=== PATIENT | male | born 1950 | race Caucasian/White ===

== ENCOUNTER 2017-07-05 12:26 | Emergency (ER) | payer OTHER ==
[2017-07-05 12:39] VITALS: TEMP 98.1
--- NOTE | 2017-07-05 14:11 | EDPHY ---
H & P Stated Complaint: left leg redness/swelling starting 06/13, seen at [facility], on Keflex, worse Time Seen by Provider: 07/05/17 14:02 - Personal History Current Tetanus/Diphtheria Vaccine: Yes Current Tetanus Diphtheria and Acellular Pertussis (TDAP): Yes Tetanus Vaccine Date: < 10 years - Medical/Surgical History Hx Asthma: No Hx Chronic Respiratory Disease: No Hx Diabetes: No Hx Cardiac Disease: No Hx Renal Disease: No Hx Cirrhosis: No Hx Alcoholism: No Hx HIV/AIDS: No Hx Splenectomy or Spleen Trauma: No Other PMH: divirticulitis - Social History Smoking Status: Former smoker Constitutional: Initial Vital Signs Temperature (C) 36.7 C 07/05/17 12:36 Heart Rate 87 07/05/17 12:36 Respiratory Rate 20 07/05/17 12:36 Blood Pressure 170/99 H 07/05/17 12:36 O2 Sat (%) 92 07/05/17 12:36 O2 Delivery Mode Room Air Allergies/Adverse Reactions: No Known Allergies Allergy (Unverified 07/05/17 12:35) Home Medications: Medication Instructions Recorded [facility] 07/05/17 Medical Decision Making - Diagnostics Imaging: Discussed imaging studies w/ call out operator Radiologist ED Course/Re-evaluation: CHIEF COMPLAINT: Leg swelling and bruising HISTORY OF PRESENT ILLNESS: The patient is a 66 y/o male complaining of persistent swelling and bruising of his left knee and lower leg after being bit or stung by some type of bug 2 weeks ago. He noticed swelling and pain the day after the bite/sting and initially had associated pain around his knee. He went to [facility] ER several days ago for these symptoms and had a normal leg US and was prescribed Keflex for possible infection. He has one dose remaining. The pain has dissipated, but he thinks his left leg still appears swollen and bruised compared to right. No chest pain, dyspnea, fever, redness, skin breakdown, or other associated symptoms. Normally healthy. REVIEW OF SYSTEMS: A 10 point review of systems was performed and is negative with the exception of the elements mentioned in the history of present illness. PHYSICAL EXAM: HR, BP, O2 Sat, RR. Temp noted General Appearance: Alert, well hydrated, appropriate, and non-toxic appearing. Head: Atraumatic without scalp tenderness or obvious injury Eyes: Pupils equal, round, reactive to light and accommodation, EOMI, no trauma , no injection. Nose: Atraumatic, no rhinorrhea, clear. Throat: Mucus membranes moist. Neck: Supple. Respiratory: No distress Cardiovascular: Good capillary refill all extremities. Musculoskeletal: Slight increased swelling of left lower leg compared to right, more superficial spider veins on left than right. No signs of cellulitis, redness, warmth, induration, streaking. Normal active ROM of all extremities, atraumatic. Neurological: Alert, appropriate, and interactive. The patient has non-focal cranial nerves, motor, sensory, and cerebellar exam. Skin: No rashes, good turgor, no nodules on palpation. PAST MEDICAL HISTORY: Diverticulitis PAST SURGICAL HISTORY: Denies SOCIAL HISTORY: Lives in [place]. Nonsmoker DIAGNOSTICS/PROCEDURES/CRITICAL CARE TIME: Left leg US: negative for DVT DIFFERENTIAL DIAGNOSIS: The differential diagnosis for the patient's leg swelling included but was not limited to hypoalbuminemia, congestive heart failure, cor pulmonale, venous stasis, trauma, and DVT. MEDICAL DECISION MAKING: This is a 66 y/o male who presents for evaluation of persistent left lower leg swelling after he was bit or stung by some type of insect 2 weeks ago. He has been on Keflex for this, but feels his symptoms have not improved enough even though his pain has resolved. He has perhaps a slight increase in swelling of his left lower leg compared to right with more prominent superficial spider veins on the left side. No evidence of cellulitis or other infection or trauma. Plan for left leg US to rule out DVT. US negative for DVT. Reassessed patient and discussed findings. He will be discharged with standard leg swelling care and follow up instructions. Return precautions discussed. He is comfortable with this plan. Departure - Departure Disposition: Home, Routine, Self-Care Clinical Impression: Left leg swelling Condition: Good Instructions: Leg Edema (ED) Additional Instructions: Use Tylenol or ibuprofen as directed on the packaging as needed for pain over the next few days. Follow up with your primary care provider for unimproved symptoms over the next few days. Return to the ED for worsening of condition. Referrals: NONE *PRIMARY CARE P,. [Primary Care Provider] - As per Instructions LORNA LEBLANC [Medical Doctor] - As per Instructions Kati Hurley MD [[facility] [place]] - As per Instructions Raine Gomez MD [[facility] Primary Care Provider] - As per Instructions Report Scribed for: Greg East Report Scribed by: Laly Quevedo Date of Report: 07/05/17 Time of Report: 14:16
[2017-07-05 14:45] VITALS: BP 146/109; PULSE 78; RESP 18; O2SAT 95
== END 2017-07-05 15:10 | disposition home or self-care (01) ==
DX: M79.89 Other specified soft tissue disorders (principal); Z87.891 Personal history of nicotine dependence